=== PATIENT | male | born 1980 | race Caucasian/White ===

== ENCOUNTER 2016-07-19 09:11 | Day surgery (SDC) | payer BC ==
[~2016-07-19] VITALS: Ht 180.3 cm; Wt 114.3 kg
[~2016-07-19 09:11] MED LIST: CEFAZOLIN 2GM PREMIX 50 ML IV PRN; CETI10TA22 PO; FENTANYL PF 100 MCG/2 ML VIAL. IV PRN; FENTANYL PF 100 MCG/2 ML VIAL. ONE; HYDROMORPHONE 2 MG/ML VIAL. IV PRN; IV RINGERS,LACTATED 1000ML 1,000 ML IV SCH; LIDOCAINE 1% 1 ML SYRINGE. ID PRN; LIDOCAINE 2% 100 MG/5 ML DISP.SYRIN. ONE; MORPHINE SULFATE 2 MG/ML DISP.SYRIN. IV PRN; ONDANSETRON PF 4 MG/2 ML VIAL. IV PRN; PROCHLORPERAZINE 10 MG/2 ML VIAL. IV PRN; PROPOFOL 20 ML IV ONE; ROCURONIUM 50 MG/5 ML VIAL. ONE; SUCCINYLCHOLINE 200 MG/10 ML VIAL. ONE
[2016-07-19] MEDS ORDERED: IV RINGERS,LACTATED 1000ML 1,000 ML IV SCH (09:30)
[2016-07-19] MEDS ORDERED: BUPIVACAINE 0.5% 50 ML VIAL. ONE (09:33)
[2016-07-19 09:59] LABS: BASO # 0.1 x10^3/uL (0.0-0.2); BASO % 1 % (0-3); EOS % 2 % (0-3); HEMATOCRIT 44.3 % (39.0-53.0); HEMOGLOBIN 15.4 g/dL (13.0-17.5); LYMPH # 1.8 x10^3/uL (1.0-4.8); LYMPH % 29 % (24-48); MEAN CORPUSCULAR HEMOGLOBIN 30 pg (25-35); MEAN CORPUSCULAR HGB CONC 35 g/dL (31-37); MEAN CORPUSCULAR VOLUME 86 fL (79-100); MONO % 7 % (0-9); NEUT % 61 % (31-73); PLATELET COUNT 167 x10^3/uL (140-400); RED BLOOD COUNT 5.13 x10^6/uL (4.30-5.70); RED CELL DISTRIBUTION WIDTH 12.7 % (11.5-14.5); WHITE BLOOD COUNT 6.4 x10^3/uL (4.0-11.0)
[2016-07-19 10:06] LABS: ALBUMIN 3.9 g/dL (3.4-5.0); CALCIUM 9.2 mg/dL (8.5-10.1); CREATININE 1.1 mg/dL (0.7-1.3); GFR 74.9; POTASSIUM 3.7 mmol/L (3.5-5.1)
[2016-07-19] MEDS ORDERED: DEXAMETHASONE SOD PHOS 20 MG/5 ML VIAL. ONE (10:19)
[2016-07-19] MEDS ORDERED: DESFLURANE 31 TO 60 MINUTES IH ONE (10:19)
[2016-07-19] MEDS ORDERED: ONDANSETRON PF 4 MG/2 ML VIAL. ONE (10:29)
[2016-07-19] MEDS ORDERED: NEOSTIGMINE METHYLSULFATE 5 MG/5 ML SYRINGE. ONE (10:29)
[2016-07-19] MEDS ORDERED: GLYCOPYRROLATE 1 MG/5 ML VIAL. ONE (10:29)
[2016-07-19 12:45] VITALS: BP 132/76
[2016-07-19] MEDS ORDERED: DOCU100C PO (12:55)
[2016-07-19] MEDS ORDERED: OXYC-323 PO (12:55)
[2016-07-19] MEDS ORDERED: OXYCODONE/APAP 5/325 TABLET. ONE (12:57)
[2016-07-19] MEDS ORDERED: OXYCODONE/APAP 5/325 TABLET. PO ONE (13:00)
--- NOTE | 2016-07-19 13:00 | DISCH ---
DISCHARGE INSTRUCTIONS Condition on Discharge Condition on Discharge: Stable Activity After Discharge Activity Instructions for Disc: Activity as tolerated, Avoid exertion Driving Instructions after Dis: Do not drive (3-4 days) Diet after Discharge Diet after Discharge: Regular Wound Incision Care Wound/Incision Care: Ice to area for comfort Other wound/incision instructi: niya showankita Follow-Up Follow Up With: Hai next week JONNIE MICHAUD MD Jul 19, 2016 12:59
--- NOTE | 2016-07-19 13:03 | PDOC ---
BRIEF OPERATIVE NOTE Date: Jul 19, 2016 Pre-Op Diagnosis incarcerated umbilical hernia Post-Op Diagnosis same Procedure Performed primary repair Surgeon Hai Anesthesia Type: General Blood Loss 10cc IV Fluid 1200cc Specimens Obtained sack and incarcerated contents Findings incarcerated pre-peritoneal fat Complications none JONNIE MICHAUD MD Jul 19, 2016 13:03
--- NOTE | 2016-07-19 14:04 | OP ---
DATE OF SURGERY: 07/19/2016 PREOPERATIVE DIAGNOSIS: Incarcerated umbilical hernia. POSTOPERATIVE DIAGNOSIS: Incarcerated umbilical hernia. PROCEDURE: Primary repair. SURGEON: Moises Michaud MD ANESTHESIA: General. BLOOD LOSS: 10 mL. INTRAVENOUS FLUIDS: 1200. INDICATIONS: The patient is a 36-year-old who had bariatric surgery and has lost over 100 pounds. He has pain and fullness in the base of his umbilicus and he is brought for repair. OPERATIVE FINDINGS: A small defect (a centimeter or less) was the exit for a golf ball sized mass of preoperative fat. DESCRIPTION OF PROCEDURE: The patient brought to the operating suite, given general endotracheal anesthetic and the abdomen prepped and draped in the usual sterile fashion. Plain Marcaine 0.5% was infiltrated in an infraumbilical fashion. Incision made and dissection carried down to the anterior sheath. The hernia was encircled with careful blunt dissection and a Marilin drain placed around it. The umbilical skin was freed from the underlying hernia and the hernia sac was excised. Incarcerated contents were removed by serially clamp, dividing and ligating with 2-0 Vicryl ties. The residual defect was small and was closed primary with 0 PDS sutures, [id number] inverted x 2. A second layer of 0 Vicryl was placed to reinforce the closure. Good hemostasis was present and a correct sponge count was obtained. The umbilical skin was tacked underlying repair with 3-0 Vicryl. Subcutaneous tissue approximated with 3-0 Vicryl, skin closed with a subcuticular 4-0 Monocryl. Steri-Strips and sterile dressing applied. Abdominal binder placed. The patient was awakened from his anesthetic and taken to the recovery room in satisfactory condition. MOISES MICHAUD MD DR: SAL/solitario JOB#: [id number] / [id number]
--- NOTE | 2016-07-20 11:12 | PATHOLOGY ---
PATHOLOGY REPORT * * * * * * * * FINAL DIAGNOSIS: Segments of fibromembranous and fibroadipose tissue, umbilical hernia repair and contents: - Hernia sac with focal fat necrosis, recent hemorrhage, and chronic inflammation of hernia sac contents. (JPM:all; d/t: 07/20/2016) REPORT ELECTRONICALLY SIGNED BY: Joel Butts M.D. DATE/TIME: 07/20/2016 11:10 * * * * * * * * GROSS PATHOLOGY: Received in formalin labeled "Lois Lantigua - umbilical hernia sac and incarcerated contents," are several segments of blood tinged, red-pink to yellow-colon, membranous, and lobulated fibroadipose tissue measuring 9.3 x 5.5 x 2.5 cm in aggregate. Sectioning reveals focal areas of possible yellow-colon fat necrosis. No nodules or lesions are identified. Soft Mud Molder tissue is submitted in cassette A1. (TTL; 07/19/2016) INITIAL CPT CODE(S): A; 29857 Professional services performed [place] [place] [address] Technical services performed by [facility] at [address] [place] [address] [address], [place] [address]. SPECIMEN(S) RECEIVED: A.Umbilical hernia sac and incarcerated contents CLINICAL HISTORY: Incarcerated umbilical hernia PATIENT: LOIS LANTIGUA /AGE: 8 1980 (Age: 36) PATIENT #: [id number] ALT CASE #: SPECIMEN COLLECTION DATE: 07/19/2016 SPECIMEN RECEIVED DATE: 07/19/2016 [facility] - [address] [place] [address] - PHONE: [phone] * * * END OF REPORT * * *
== END 2016-07-19 13:14 | disposition home or self-care (01) ==
LOC: SURG 09:11
PROVIDERS: ATTEND Surgery
DX: K42.0 Umbilical hernia with obstruction, without gangrene (principal)
CPT/HCPCS: 36415; 49587; 80048; 82040; 85027; J0330; J0690; J1100; J2405; J2704; J2710; J3010; J3490; C1769; J7120

== ENCOUNTER 2016-10-31 07:52 | Inpatient (IN) | payer BC ==
[~2016-10-31] VITALS: Ht 180.3 cm; Wt 113.2 kg
[2016-10-31] VITALS (9 sets, daily range): BP systolic 110–136; BP diastolic 51–90
[~2016-10-31 07:52] MED LIST changes: -CEFAZOLIN 2GM PREMIX 50 ML IV PRN; +DOCU100C PO; -FENTANYL PF 100 MCG/2 ML VIAL. IV PRN; -FENTANYL PF 100 MCG/2 ML VIAL. ONE; -HYDROMORPHONE 2 MG/ML VIAL. IV PRN; -IV RINGERS,LACTATED 1000ML 1,000 ML IV SCH; -LIDOCAINE 1% 1 ML SYRINGE. ID PRN; -LIDOCAINE 2% 100 MG/5 ML DISP.SYRIN. ONE; -MORPHINE SULFATE 2 MG/ML DISP.SYRIN. IV PRN; -ONDANSETRON PF 4 MG/2 ML VIAL. IV PRN; +OXYC-323 PO; -PROCHLORPERAZINE 10 MG/2 ML VIAL. IV PRN; -PROPOFOL 20 ML IV ONE; -ROCURONIUM 50 MG/5 ML VIAL. ONE; -SUCCINYLCHOLINE 200 MG/10 ML VIAL. ONE
[2016-10-31] MEDS ORDERED: FAMOTIDINE 20 MG/2 ML VIAL IVP ONE (08:30)
[2016-10-31] MEDS ORDERED: FENTANYL PF 100 MCG/2 ML VIAL. IV ONE ×2 (08:30→10:00)
[2016-10-31] MEDS ORDERED: ONDANSETRON PF 4 MG/2 ML VIAL. IV ONE (08:30)
[2016-10-31] MEDS ORDERED: IV NORMAL SALINE 1000ML BAG 1,000 ML IV ONE ×2 (08:30→14:00)
--- NOTE | 2016-10-31 08:33 | PHYS DOC ---
Past Medical History Past Medical History: No Pertinent History Past Surgical History: Other Additional Past Surgical Histo: hiatal hernia sugery, gastric lab band, hydrocele Alcohol Use: None Drug Use: None Adult General Chief Complaint Chief Complaint: ABDOMINAL PAIN HPI HPI Patient is a 36 year old male with history of hiatal hernia repair, gastric sleeve bypass, and hydrocele, who presents today with moderate bilateral upper abdominal pain that began at midnight. Patient denies pain waking him up. Patient denies any nausea, vomiting. Denies any urgency frequency or dysuria. He states he believes he has a gallbladder attack. He states he's had multiple gallbladder attacks before but they have typically subsided within a short time. Review of Systems Review of Systems Constitutional: Denies fever or chills [] Eyes: Denies change in visual acuity, redness, or eye pain [] HENT: Denies nasal congestion or sore throat [] Respiratory: Denies cough or shortness of breath [] Cardiovascular: No additional information not addressed in HPI [] GI: Bilateral upper abdominal pain, : Denies dysuria or hematuria [] Musculoskeletal: Denies back pain or joint pain [] Integument: Denies rash or skin lesions [] Neurologic: Denies headache, focal weakness or sensory changes [] Endocrine: Denies polyuria or polydipsia [] Current Medications Current Medications Current Medications Medications (Trade) Dose Ordered Sig/Lizbeth Start Time Stop Time Status Last Admin Dose Admin Famotidine (Pepcid) 20 mg 1X ONCE 10/31/16 08:30 10/31/16 08:31 DC 10/31/16 08:52 20 MG Fentanyl Citrate (Fentanyl 2ml Vial) 75 mcg 1X ONCE 10/31/16 10:00 10/31/16 10:01 Cancel Fentanyl Citrate 50 mcg 50 mcg PRN Q2HR PRN 10/31/16 14:00 11/01/16 13:59 Ketorolac Tromethamine (Toradol) 30 mg STK-MED ONCE 10/31/16 10:31 10/31/16 10:32 DC Ondansetron HCl (Zofran) 4 mg PRN Q8HRS PRN 10/31/16 14:00 11/01/16 13:59 Sodium Chloride (Iv Sodium Chloride 0.9% 1000ml Bag) 1,000 ml @ 75 mls/hr 1X ONCE 10/31/16 14:00 11/01/16 03:19 Allergies Allergies Allergies Coded Allergies Type Severity Reaction Last Updated Verified No Known Drug Allergies 07/13/16 No Physical Exam Physical Exam Constitutional: Well developed, well nourished, no acute distress, non-toxic appearance. [] HENT: Normocephalic, atraumatic, bilateral external ears normal, oropharynx moist, no oral exudates, nose normal. [] Eyes: PERRLA, EOMI, conjunctiva normal, no discharge. [] Neck: Normal range of motion, no tenderness, supple, no stridor. [] Cardiovascular:Heart rate regular rhythm, no murmur [] Lungs & Thorax: Bilateral breath sounds clear to auscultation [] Abdomen: Rounded abdomen. Healed surgical scars noted on the umbilicus. Bowel sounds normal, soft, diffuse bilateral upper abdominal tenderness, negative Cabrera sign, no right lower quadrant pain or tenderness, negative psoas, sign negative, negative obturator sign, no masses, no pulsatile masses. [] Skin: Warm, dry, no erythema, no rash. [] Back: No tenderness, no CVA tenderness. [] Extremities: No tenderness, no cyanosis, no clubbing, ROM intact, no edema. [] Neurologic: Alert and oriented X 3, normal motor function, normal sensory function, no focal deficits noted. [] Psychologic: Affect normal, judgement normal, mood normal. [] Current Patient Data Vital Signs Vital Signs Date Time Temp Pulse Resp B/P Pulse Ox O2 Delivery O2 Flow Rate FiO2 10/31/16 13:33 40 18 114/68 96 Room Air 10/31/16 08:18 97.7 97.7 Lab Values Laboratory Tests Test 10/31/16 08:48 White Blood Count 8.8x10^3/uL (4.0-11.0) Red Blood Count 4.98x10^6/uL (4.30-5.70) Hemoglobin 14.7g/dL (13.0-17.5) Hematocrit 44.5% (39.0-53.0) Mean Corpuscular Volume 89fL (79-100) Mean Corpuscular Hemoglobin 30pg (25-35) Mean Corpuscular Hemoglobin Concent 33g/dL (31-37) Red Cell Distribution Width 13.1% (11.5-14.5) Platelet Count 182x10^3/uL (140-400) Neutrophils (%) (Auto) 79% (31-73) H Lymphocytes (%) (Auto) 15% (24-48) L Monocytes (%) (Auto) 4% (0-9) Eosinophils (%) (Auto) 1% (0-3) Basophils (%) (Auto) 1% (0-3) Neutrophils # (Auto) 6.9x10^3uL (1.8-7.7) Lymphocytes # (Auto) 1.3x10^3/uL (1.0-4.8) Monocytes # (Auto) 0.4x10^3/uL (0.0-1.1) Eosinophils # (Auto) 0.1x10^3/uL (0.0-0.7) Basophils # (Auto) 0.1x10^3/uL (0.0-0.2) Urine Collection Type Unknown Urine Color Yellow Urine Clarity Clear Urine pH 5.5 Urine Specific [place] 1.025 Urine Protein Negativemg/dL (NEG-TRACE) Urine Glucose (UA) Negativemg/dL (NEG) Urine Ketones (Stick) Negativemg/dL (NEG) Urine Blood Negative (NEG) Urine Nitrite Negative (NEG) Urine Bilirubin Negative (NEG) Urine Urobilinogen Dipstick 0.2mg/dL (0.2 mg/dL) Urine Leukocyte Esterase Negative (NEG) Urine RBC 0/HPF (0-2) Urine WBC 0/HPF (0-4) Urine Bacteria 0/HPF (0-FEW) Sodium Level 141mmol/L (136-145) Potassium Level 4.4mmol/L (3.5-5.1) Chloride Level 103mmol/L (98-107) Carbon Dioxide Level 28mmol/L (21-32) Anion Gap 10 (6-14) Blood Urea Nitrogen 15mg/dL (8-26) Creatinine 1.1mg/dL (0.7-1.3) Estimated GFR (Cockcroft-Gault) 74.9 BUN/Creatinine Ratio 14 (6-20) Glucose Level 126mg/dL (70-99) H Calcium Level 9.9mg/dL (8.5-10.1) Total Bilirubin 0.4mg/dL (0.2-1.0) Aspartate Amino Transferase (AST) 19U/L (15-37) Alanine Aminotransferase (ALT) 30U/L (16-63) Alkaline Phosphatase 51U/L (46-116) Total Protein 7.8g/dL (6.4-8.2) Albumin 4.5g/dL (3.4-5.0) Albumin/Globulin Ratio 1.4 (1.0-1.7) Lipase 113U/L (73-393) Urine Opiates Screen Neg (NEG) Urine Methadone Screen Neg (NEG) Urine Barbiturates Neg (NEG) Urine Phencyclidine Screen Neg (NEG) Urine Amphetamine/Methamphetamine Neg (NEG) Urine Benzodiazepines Screen Neg (NEG) Urine Cocaine Screen Neg (NEG) Urine Cannabinoids Screen Neg (NEG) Ethyl Alcohol Level < 10mg/dL (0-10) Urine Ethyl Alcohol Neg (NEG) Laboratory Tests 10/31/16 08:48 Laboratory Tests 10/31/16 08:48 EKG EKG 10:[address] MACIAS sinus bradycardia, heart rate 37, [] Radiology/Procedures Radiology/Procedures [] Course & Med Decision Making Course & Med Decision Making Pertinent Labs and Imaging studies reviewed. (See chart for details) Patient is in the ED with bilateral upper abdominal pain that began at midnight. He has history of similar pain and he believes he has gallbladder problems. Labs are negative for any acute findings. Abdominal ultrasound was noted for cholelithiasis, no cholecystitis. Patient was given fentanyl and Zofran and IV fluids. He was still writhing in pain. He is requesting his gallbladder to be removed a right now. His heart rate has been in the high 30s to 60s with no cardiac symptoms. Patient states he has history of chronic bradycardia. 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 He states he had to loose tremendous amount of weight by working out. He states his heart rate has always run in the 30s to 60s. He states he has a PCP who follows up with this. He states he does not take any beta blockers. Consulted with Dr. Valles and patient was admitted. Dragon Disclaimer Dragon Disclaimer This electronic medical record was generated, in whole or in part, using a voice recognition dictation system. Departure Departure Impression: Primary Impression: Cholelithiasis Additional Impressions: Chronic sinus bradycardia Intractable abdominal pain Referrals: ALFRED MULLEN (PCP) Problem Qualifiers Primary Impression: Cholelithiasis Cholelithiasis location: gallbladder Cholecystitis presence: without cholecystitis Biliary obstruction: without biliary obstruction Qualified Code : K80.20 - Calculus of gallbladder without cholecystitis without obstruction RAD VELAZCO LUMBER STACKER Oct 31, 2016 08:33
[2016-10-31 09:04] LABS: BASO # 0.1 x10^3/uL (0.0-0.2); BASO % 1 % (0-3); EOS % 1 % (0-3); HEMATOCRIT 44.5 % (39.0-53.0); HEMOGLOBIN 14.7 g/dL (13.0-17.5); LYMPH # 1.3 x10^3/uL (1.0-4.8); LYMPH % 15 % (24-48); MEAN CORPUSCULAR HEMOGLOBIN 30 pg (25-35); MEAN CORPUSCULAR HGB CONC 33 g/dL (31-37); MEAN CORPUSCULAR VOLUME 89 fL (79-100); MONO % 4 % (0-9); NEUT % 79 % (31-73); PLATELET COUNT 182 x10^3/uL (140-400); RED BLOOD COUNT 4.98 x10^6/uL (4.30-5.70); RED CELL DISTRIBUTION WIDTH 13.1 % (11.5-14.5); WHITE BLOOD COUNT 8.8 x10^3/uL (4.0-11.0)
[2016-10-31 09:06] LABS: BILIRUBIN,URINE NEGATIVE (NEG); GLUCOSE,URINE NEGATIVE (NEG); NITRITE,URINE NEGATIVE (NEG); PH,URINE 5.5; PROTEIN,URINE NEGATIVE (NEG-TRACE); UROBILINOGEN,URINE 0.2 mg/dL (0.2 mg/dL)
[2016-10-31 09:11] LABS: BARBITURATES NEG (NEG); BENZODIAZEPINES NEG (NEG); CANNABINOIDS NEG (NEG); COCAINE NEG (NEG); METHADONE NEG (NEG); OPIATES NEG (NEG); PHENCYCLIDINE NEG (NEG)
[2016-10-31 09:12] LABS: ETHANOL, URINE NEG (NEG)
[2016-10-31 09:15] LABS: BACTERIA,URINE 0 /HPF (0-FEW); RBC,URINE 0 /HPF (0-2); WBC,URINE 0 /HPF (0-4)
[2016-10-31 09:20] LABS: CALCIUM 9.9 mg/dL (8.5-10.1); CREATININE 1.1 mg/dL (0.7-1.3); GFR 74.9; POTASSIUM 4.4 mmol/L (3.5-5.1)
[2016-10-31 09:26] LABS: ALBUMIN 4.5 g/dL (3.4-5.0); ALBUMIN/GLOBULIN RATIO 1.4 (1.0-1.7); TOTAL BILIRUBIN 0.4 mg/dL (0.2-1.0); TOTAL PROTEIN 7.8 g/dL (6.4-8.2)
--- NOTE | 2016-10-31 09:41 | RAD ---
Indication:Abdominal pain Grayscale images of the abdomen were obtained. Comparison none Liver:A focal mass lesion is not seen and the visualized liver. There is slightly increased attenuation of the ultrasound beam by the liver compatible with mild fatty infiltration Gallbladder:The gallbladder is mildly dilated. A stone is noted in the neck of the gallbladder. Wall thickening or pericholecystic fluid is not seen. The common bile duct diameter of approximately 6 mm is at the upper limits of normal Spleen:Normal Pancreas:Poorly visualized and largely obscured by gas Kidneys:Normal Abdominal aorta and IVC:Similar to the pancreas largely obscured Ancillary findings:None Impression:Cholelithiasis. Mild fatty infiltration of the liver Midline structures largely obscured
[2016-10-31] MEDS ORDERED: KETOROLAC TROMETHAMINE 30 MG/ML INJ. IV ONE (10:30)
[2016-10-31] MEDS ORDERED: KETOROLAC TROMETHAMINE 30 MG/ML INJ. ONE (10:31)
--- NOTE | 2016-10-31 10:52 | ACF ---
Admission Forms Criteria GALLBLADDER OR BILE DUCT INFLAMMATION OR STONE Clinical Indications for Admission to Inpatient Care ( Place 'X' for any and all applicable criteria): Admission is indicated for patients with ANY ONE of the following(1)(2)(3)(4)(5) : [ ]I. Acute cholecystitis as indicated by ALL of the following: [ ]a) Right upper quadrant pain, mass, or tenderness [ ]b) Systemic signs of inflammation indicated by ANY ONE of the following: [ ]i) Fever [ ]ii) C-reactive protein level greater than 10 mg/L (95 nmol/L) [ ]iii) White blood cell count greater than 10,000/mm3 (10 x109/L) or less than 4000/mm3 (4 x109/L) [X]II. Inpatient admission required rather than observation care (Also use Gallbladder or Bile Duct Inflammation or Stone: Observation Care as appropriate) because of ANY ONE of the following: [ ]a) Common bile duct obstruction diagnosed [ ]b) Vomiting that is severe or persistent [ ]c) Severe pain requiring acute inpatient management [ ]d) Signs of intestinal obstruction or peritonitis [A] [ ]e) Severe electrolyte abnormalities requiring inpatient care [ ]f) Absent bowel sounds with complete ileus(8) [X]g) Hemodynamic instability [ ]h) High fever or infection requiring inpatient admission as indicated by ANY ONE of the following (9): [ ]1) Appropriate outpatient or observation care antimicrobial Treatment. unavailable, not effective, or not feasible [ ]2) Temperature greater than 104.9 degrees F (40.5 degrees C) (oral) [ ]3) Temperature greater than 103.1 degrees F (39.5 degrees C) (oral) or less than 96.8 degrees F (36 degrees C) (rectal) that does not respond to all emergency treatment measures [ ]4) Documented bacteremia [ ]i) IV fluid to replace significant ongoing losses (greater than 3 L/m2 per day) [ ]j) Percutaneous or open drainage (eg, abscess, biliary tract) procedures [ ]k) Immediate inpatient surgery [ ]l) Other condition, treatment or monitoring requiring inpatient admission [ ]III. Acute cholangitis as indicated by ALL of the following(9)(10): [ ]a) Systemic signs of inflammation indicated by ANY ONE of the following: [ ]i) Fever [ ]ii) C-reactive protein level greater than 10 mg/L (95 nmol /L) [ ]iii) White blood cell count greater than 10,000/mm3 (10 x109/L) or less than 4000/mm3 (4 x109/L) [ ]b) Evidence of common bile duct disease indicated by ANY ONE of the following: [ ]i) Total serum bilirubin level greater than or equal to 2 mg/dL (34 micromoles/L) [ ]ii) Liver function test (alkaline phosphatase (ALP), r- glutamyltransferase (GGT), aspartate aminotransferase (AST), or alanine aminotransferase (ALT)) greater than 1.5 times the upper limit of normal[B] [ ]iii) Hepatobiliary imaging showing biliary dilatation or evidence of etiology (eg, stricture, stone, previously placed stent) Extended stay beyond goal length of stay may be needed for (1)(2)): [ ]a) Bacteremia or Hemodynamic instability [ ]b) Cholecystectomy [ ]c) Other surgical procedure(24) [ ]d) Percutaneous or endoscopic ultrasound-guided cholecystostomy The original [facility] content created by [facility] has been revised. The portions of the content which have been revised are identified through the use of italic text or in bold, and [facility] has neither reviewed nor approved the modified material. All other unmodified content is copyright [facility]. Please see references footnoted in the original [facility] edition 2016 Admission Criteria Met?: Yes TRAY NINA Oct 31, 2016 10:52
--- NOTE | 2016-10-31 11:18 | EKG ---
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
--- NOTE | 2016-10-31 12:47 | PDOC2 ---
DEEJAY WOODS Kelly SHEET TAKER 10/31/16 1247: CONSULT Date of Consult Date of Consult DATE: 10/31/16 TIME: 12:40 Reason for Consult Reason for Consult: cholelithiasis Referring Physician Referring Physician: ER Identification/Chief Complaint Chief Complaint abdominal pain Source Source: Chart review, Patient History of Present Illness Reason for Visit: Acute abdominal pain, started last night. across abdomen, no radiation to back. No emesis. Has had similar episodes in past. Aggravated by pepperoni ( had for lunch yesterday). Currently feeling better Past Medical History Past Medical History no significant medical problems Past Surgical History Past Surgical History: Hernia Repair (umbilical in Jul, lap band ) Family History Family History: Other (noncontributory to current illness ) Social History No ALCOHOL: occassional Drugs: None Lives: with Family Current Medications Current Medications Current Medications Sodium Chloride (Iv Sodium Chloride 0.9% 1000ml Bag) 1,000 ml @ 1,000 mls/hr 1X ONCE IV Last administered on 10/31/16 08:53; Start 10/31/16 at 08:30; Stop 10/31/16 at 09:29; Status DC Famotidine (Pepcid) 20 mg 1X ONCE IVP Last administered on 10/31/16 08:52; Start 10/31/16 at 08:30; Stop 10/31/16 at 08:31; Status DC Ondansetron HCl (Zofran) 4 mg 1X ONCE IV Last administered on 10/31/16 08:52 ; Start 10/31/16 at 08:30; Stop 10/31/16 at 08:31; Status DC Fentanyl Citrate (Fentanyl 2ml Vial) 50 mcg 1X ONCE IV Last administered on 08:52; Start 10/31/16 at 08:30; Stop 10/31/16 at 08:31; Status DC Fentanyl Citrate (Fentanyl 2ml Vial) 75 mcg 1X ONCE IV ; Start 10/31/16 at 10: 00; Stop 10/31/16 at 10:01; Status Cancel Ketorolac Tromethamine (Toradol) 30 mg 1X ONCE IV Last administered on 10:32; Start 10/31/16 at 10:30; Stop 10/31/16 at 10:31; Status DC Ketorolac Tromethamine (Toradol) 30 mg STK-MED ONCE .ROUTE ; Start 10/31/16 at 10:31; Stop 10/31/16 at 10:32; Status DC Active Scripts Active Reported Stool Softener (Docusate Sodium) 100 Mg Capsule 100 Mg PO Percocet 5-325 Mg Tablet (Oxycodone/Acetaminophen) 1 Each Tablet 1 Tab PO QID Zyrtec (Cetirizine Hcl) 10 Mg Tablet 10 Mg PO Allergies Allergies: Coded Allergies: No Known Drug Allergies (Unverified , 07/13/16) ROS General: No: Chills, Other (fevers) PSYCHOLOGICAL ROS: No: Anxiety, Depression Eyes: No Blurry vision, No Double vision HEENT: No: Heacaches, Sore Throat Hematological and Lymphatic: No: Bleeding Problems, Blood Clots Respiratory: No: Cough, Shortness of breath Cardiovascular: No Chest Pain, No Palpitations Gastrointestinal: Yes Other (see hpi) Genitourinary: No Dysuria, No Hematuria Musculoskeletal: No Joint Pain, No Muscle Pain Neurological: No Confusion, No Numbness/Tingling Skin: No Pruritus, No Rash Physical Exam General: Alert, Oriented X3, Cooperative, No acute distress HEENT: PERRLA, Mucous membr. moist/pink Lungs: Clear to auscultation, Normal air movement Heart: Regular rate, Normal S1, Normal S2, No murmurs Abdomen: Soft, Other (ND, mildly tender to RUQ) Extremities: No clubbing, No cyanosis Skin: No rashes, No breakdown Neuro: Normal gait, Normal speech Psych/Mental Status: Mental status NL, Mood NL MUSCULOSKELETAL: No deformity, No swelling Vitals VITALS Vital Signs Date Time Temp Pulse Resp B/P Pulse Ox O2 Delivery O2 Flow Rate FiO2 10/31/16 11:03 42 20 140/69 97 Room Air 10/31/16 08:18 97.7 97.7 Labs Labs Laboratory Tests Test 10/31/16 08:48 White Blood Count 8.8x10^3/uL (4.0-11.0) Red Blood Count 4.98x10^6/uL (4.30-5.70) Hemoglobin 14.7g/dL (13.0-17.5) Hematocrit 44.5% (39.0-53.0) Mean Corpuscular Volume 89fL (79-100) Mean Corpuscular Hemoglobin 30pg (25-35) Mean Corpuscular Hemoglobin Concent 33g/dL (31-37) Red Cell Distribution Width 13.1% (11.5-14.5) Platelet Count 182x10^3/uL (140-400) Neutrophils (%) (Auto) 79% (31-73) Lymphocytes (%) (Auto) 15% (24-48) Monocytes (%) (Auto) 4% (0-9) Eosinophils (%) (Auto) 1% (0-3) Basophils (%) (Auto) 1% (0-3) Neutrophils # (Auto) 6.9x10^3uL (1.8-7.7) Lymphocytes # (Auto) 1.3x10^3/uL (1.0-4.8) Monocytes # (Auto) 0.4x10^3/uL (0.0-1.1) Eosinophils # (Auto) 0.1x10^3/uL (0.0-0.7) Basophils # (Auto) 0.1x10^3/uL (0.0-0.2) Urine Collection Type Unknown Urine Color Yellow Urine Clarity Clear Urine pH 5.5 Urine Specific [place] 1.025 Urine Protein Negativemg/dL (NEG-TRACE) Urine Glucose (UA) Negativemg/dL (NEG) Urine Ketones (Stick) Negativemg/dL (NEG) Urine Blood Negative (NEG) Urine Nitrite Negative (NEG) Urine Bilirubin Negative (NEG) Urine Urobilinogen Dipstick 0.2mg/dL (0.2 mg/dL) Urine Leukocyte Esterase Negative (NEG) Urine RBC 0/HPF (0-2) Urine WBC 0/HPF (0-4) Urine Bacteria 0/HPF (0-FEW) Sodium Level 141mmol/L (136-145) Potassium Level 4.4mmol/L (3.5-5.1) Chloride Level 103mmol/L (98-107) Carbon Dioxide Level 28mmol/L (21-32) Anion Gap 10 (6-14) Blood Urea Nitrogen 15mg/dL (8-26) Creatinine 1.1mg/dL (0.7-1.3) Estimated GFR (Cockcroft-Gault) 74.9 BUN/Creatinine Ratio 14 (6-20) Glucose Level 126mg/dL (70-99) Calcium Level 9.9mg/dL (8.5-10.1) Total Bilirubin 0.4mg/dL (0.2-1.0) Aspartate Amino Transf (AST/SGOT) 19U/L (15-37) Alanine Aminotransferase (ALT/SGPT) 30U/L (16-63) Alkaline Phosphatase 51U/L (46-116) Total Protein 7.8g/dL (6.4-8.2) Albumin 4.5g/dL (3.4-5.0) Albumin/Globulin Ratio 1.4 (1.0-1.7) Lipase 113U/L (73-393) Urine Opiates Screen Neg (NEG) Urine Methadone Screen Neg (NEG) Urine Barbiturates Neg (NEG) Urine Phencyclidine Screen Neg (NEG) Urine Amphetamine/Methamphetamine Neg (NEG) Urine Benzodiazepines Screen Neg (NEG) Urine Cocaine Screen Neg (NEG) Urine Cannabinoids Screen Neg (NEG) Ethyl Alcohol Level < 10mg/dL (0-10) Urine Ethyl Alcohol Neg (NEG) Assessment/Plan Assessment/Plan symptomatic cholelithiasis, stone in neck of gallbladder will review with Dr Michaud on timing of surgery JONNIE MICHAUD MD 10/31/16 1512: CONSULT Allergies Allergies: Coded Allergies: No Known Drug Allergies (Unverified , 07/13/16) Assessment/Plan Assessment/Plan pt seen, interviewed and examined will proceed with cholecystectomy explained risks including but not limited to bleeding, infection, injury to bowel, liver or bile ducts with resultant bile leak or bile blockage. also possible need for an "open" procedure or diarrhea post op. he will proceed Thanks for consult DEEJAY WOODS APRN Oct 31, 2016 12:47 JONNIE MICHAUD MD Oct 31, 2016 15:12
[2016-10-31] MEDS ORDERED: ONDANSETRON PF 4 MG/2 ML VIAL. IV PRN ×3 (14:00→19:15)
[2016-10-31] MEDS ORDERED: CEFAZOLIN 1GM IVPB FOR OMNI 50 ML IV ONE (14:30)
[2016-10-31] MEDS: FENTANYL PF 100 MCG/2 ML VIAL. IV PRN ×2 (15:51→23:25)
[2016-10-31] MEDS ORDERED: CEFAZOLIN 1 GM IV SCH (16:00)
[2016-10-31] MEDS ORDERED: IV RINGERS,LACTATED 1000ML 1,000 ML IV SCH (16:14)
[2016-10-31] MEDS ORDERED: HYDROMORPHONE 2 MG/ML VIAL. IV PRN ×2 (16:15→19:15)
[2016-10-31] MEDS ORDERED: PROCHLORPERAZINE 10 MG/2 ML VIAL. IV PRN (16:15)
[2016-10-31] MEDS ORDERED: FENTANYL PF 100 MCG/2 ML VIAL. IV PRN ×2 (16:15)
[2016-10-31] MEDS ORDERED: MORPHINE SULFATE 2 MG/ML DISP.SYRIN. IV PRN (16:15)
[2016-10-31] MEDS ORDERED: LIDOCAINE 1% 1 ML SYRINGE. ID PRN (16:15)
[2016-10-31] MEDS ORDERED: SUCCINYLCHOLINE 200 MG/10 ML VIAL. ONE (16:43)
[2016-10-31] MEDS ORDERED: FENTANYL PF 100 MCG/2 ML VIAL. ONE ×2 (16:43→18:42)
[2016-10-31] MEDS ORDERED: LIDOCAINE 2% 100 MG/5 ML SYRINGE. ONE (16:43)
[2016-10-31] MEDS ORDERED: PROPOFOL 20 ML IV ONE ×2 (16:43→18:41)
[2016-10-31] MEDS ORDERED: ROCURONIUM 50 MG/5 ML VIAL. ONE (16:44)
[2016-10-31] MEDS ORDERED: CEFAZOLIN 2GM PREMIX 50 ML IV ONE (17:07)
[2016-10-31] MEDS ORDERED: FAMOTIDINE 20 MG/2 ML VIAL ONE (17:13)
[2016-10-31] MEDS ORDERED: SURGICEL HEMOSTAT 4X8 EACH. ONE (17:21)
[2016-10-31] MEDS ORDERED: BUPIVAC MPF-EPI 0.5%-1:200000 30 ML VIAL. ONE (17:22)
[2016-10-31] MEDS ORDERED: IOHEXOL 300 MG/ML 50 ML VIAL. ONE (17:22)
[2016-10-31] MEDS ORDERED: ACETAMINOPHEN INTRAVENOUS 100 ML IV ONE (17:32)
[2016-10-31] MEDS: CEFAZOLIN SODIUM 1 GM in IV NORMAL SALINE 50ML 50 ML IV SCH ×2 (17:50→23:25)
[2016-10-31] MEDS ORDERED: DEXAMETHASONE SOD PHOS 20 MG/5 ML VIAL. ONE (18:11)
[2016-10-31] MEDS ORDERED: NEOSTIGMINE METHYLSULFATE 5 MG/5 ML SYRINGE. ONE (18:11)
[2016-10-31] MEDS ORDERED: GLYCOPYRROLATE 1 MG/5 ML VIAL. ONE (18:11)
[2016-10-31] MEDS ORDERED: DESFLURANE 31 TO 60 MINUTES IH ONE (18:11)
[2016-10-31] MEDS ORDERED: ONDANSETRON PF 4 MG/2 ML VIAL. ONE (18:11)
[2016-10-31] MEDS ORDERED: DIPHENHYDRAMINE HCL 25 MG CAPSULE PO PRN (19:15)
[2016-10-31] MEDS ORDERED: DIPHENHYDRAMINE 50 MG/ML VIAL. IV PRN (19:15)
[2016-10-31] MEDS ORDERED: 0.9 % SODIUM CHLORIDE 10 ML DISP.SYRIN. IV PRN (19:15)
[2016-10-31] MEDS ORDERED: DEXTROSE 50% 25 GM / 50ML DISP.SYRIN. IV PRN (19:15)
[2016-10-31] MEDS ORDERED: OXYCODONE/APAP 5/325 TABLET. PO PRN ×2 (19:15)
--- NOTE | 2016-10-31 19:17 | PDOC ---
BRIEF OPERATIVE NOTE Date: Oct 31, 2016 Pre-Op Diagnosis symptomatic cholelithiasis Post-Op Diagnosis same with gangrenous cholecystitis Procedure Performed l/s cholecystectomy with cholangiograms Surgeon Hai Anesthesia Type: General Blood Loss 25cc IV Fluid 400cc Specimens Obtained GB Findings gangrenous gallbladder, normal grams JONNIE MICHAUD MD Oct 31, 2016 19:17
[2016-10-31] MEDS ORDERED: ENOXAPARIN 40 MG/0.4 ML SYRINGE. SQ SCH (20:00)
[2016-10-31] MEDS: POTASSIUM CL 20MEQ-0.45% NACL 1,000 ML IV SCH (21:54)
[2016-10-31] MEDS: DOCUSATE SODIUM 100 MG CAPSULE. PO SCH (21:55)
[2016-11-01 03:01] VITALS: BP 112/84
[2016-11-01] MEDS: FENTANYL PF 100 MCG/2 ML VIAL. IV PRN ×2 (03:21→08:56)
[2016-11-01] MEDS: CEFAZOLIN SODIUM 1 GM in IV NORMAL SALINE 50ML 50 ML IV SCH ×2 (05:34→08:52)
[2016-11-01 05:49] LABS: BASO % 1 % (0-3); EOS % 0 % (0-3); HEMATOCRIT 41.8 % (39.0-53.0); HEMOGLOBIN 14.1 g/dL (13.0-17.5); LYMPH % 11 % (24-48); MEAN CORPUSCULAR HEMOGLOBIN 30 pg (25-35); MEAN CORPUSCULAR HGB CONC 34 g/dL (31-37); MEAN CORPUSCULAR VOLUME 87 fL (79-100); MONO % 6 % (0-9); NEUT % 82 % (31-73); PLATELET COUNT 153 x10^3/uL (140-400); RED BLOOD COUNT 4.78 x10^6/uL (4.30-5.70); RED CELL DISTRIBUTION WIDTH 13.4 % (11.5-14.5); WHITE BLOOD COUNT 8.7 x10^3/uL (4.0-11.0)
[2016-11-01] MEDS ORDERED: CEFAZOLIN 2GM PREMIX 50 ML IV PRN (06:00)
[2016-11-01 06:25] LABS: ALBUMIN 3.5 g/dL (3.4-5.0); ALBUMIN/GLOBULIN RATIO 1.1 (1.0-1.7); CALCIUM 8.9 mg/dL (8.5-10.1); GFR 83.6; POTASSIUM 4.6 mmol/L (3.5-5.1); TOTAL BILIRUBIN 0.6 mg/dL (0.2-1.0); TOTAL PROTEIN 6.7 g/dL (6.4-8.2)
[2016-11-01 07:00] VITALS: BP 122/77
[2016-11-01] MEDS: DOCUSATE SODIUM 100 MG CAPSULE. PO SCH (08:55)
[2016-11-01] MEDS: POTASSIUM CL 20MEQ-0.45% NACL 1,000 ML IV SCH (08:55)
--- NOTE | 2016-11-01 10:03 | PDOC ---
SURGICAL PROGRESS NOTE Subjective tolerating diet feeling well no nausea urinating Vital Signs Vital Signs Date Time Temp Pulse Resp B/P Pulse Ox O2 Delivery O2 Flow Rate FiO2 11/01/16 09:53 Room Air 11/01/16 07:00 97.5 40 18 122/77 97 97.5 10/31/16 19:37 2 I&O Intake and Output 11/01/16 07:00 Intake Total 1350 ml Output Total 735 ml Balance 615 ml Intake Oral 800 ml IV Total 550 ml Output Urine Total 650 ml Drainage Total 60 ml Estimated Blood Loss 25 ml # Voids 2 General: Alert, Oriented X3, Cooperative, No acute distress Abdomen: Soft, Other (ND, drain serosang, lap dressings dry ) Labs Laboratory Tests Test 10/31/16 08:48 11/01/16 05:11 White Blood Count 8.8x10^3/uL (4.0-11.0) 8.7x10^3/uL (4.0-11.0) Red Blood Count 4.98x10^6/uL (4.30-5.70) 4.78x10^6/uL (4.30-5.70) Hemoglobin 14.7g/dL (13.0-17.5) 14.1g/dL (13.0-17.5) Hematocrit 44.5% (39.0-53.0) 41.8% (39.0-53.0) Mean Corpuscular Volume 89fL (79-100) 87fL (79-100) Mean Corpuscular Hemoglobin 30pg (25-35) 30pg (25-35) Mean Corpuscular Hemoglobin Concent 33g/dL (31-37) 34g/dL (31-37) Red Cell Distribution Width 13.1% (11.5-14.5) 13.4% (11.5-14.5) Platelet Count 182x10^3/uL (140-400) 153x10^3/uL (140-400) Neutrophils (%) (Auto) 79% (31-73) 82% (31-73) Lymphocytes (%) (Auto) 15% (24-48) 11% (24-48) Monocytes (%) (Auto) 4% (0-9) 6% (0-9) Eosinophils (%) (Auto) 1% (0-3) 0% (0-3) Basophils (%) (Auto) 1% (0-3) 1% (0-3) Neutrophils # (Auto) 6.9x10^3uL (1.8-7.7) 7.2x10^3uL (1.8-7.7) Lymphocytes # (Auto) 1.3x10^3/uL (1.0-4.8) 1.0x10^3/uL (1.0-4.8) Monocytes # (Auto) 0.4x10^3/uL (0.0-1.1) 0.5x10^3/uL (0.0-1.1) Eosinophils # (Auto) 0.1x10^3/uL (0.0-0.7) 0.0x10^3/uL (0.0-0.7) Basophils # (Auto) 0.1x10^3/uL (0.0-0.2) 0.0x10^3/uL (0.0-0.2) Urine Collection Type Unknown Urine Color Yellow Urine Clarity Clear Urine pH 5.5 Urine Specific [place] 1.025 Urine Protein Negativemg/dL (NEG-TRACE) Urine Glucose (UA) Negativemg/dL (NEG) Urine Ketones (Stick) Negativemg/dL (NEG) Urine Blood Negative (NEG) Urine Nitrite Negative (NEG) Urine Bilirubin Negative (NEG) Urine Urobilinogen Dipstick 0.2mg/dL (0.2 mg/dL) Urine Leukocyte Esterase Negative (NEG) Urine RBC 0/HPF (0-2) Urine WBC 0/HPF (0-4) Urine Bacteria 0/HPF (0-FEW) Sodium Level 141mmol/L (136-145) 141mmol/L (136-145) Potassium Level 4.4mmol/L (3.5-5.1) 4.6mmol/L (3.5-5.1) Chloride Level 103mmol/L (98-107) 106mmol/L (98-107) Carbon Dioxide Level 28mmol/L (21-32) 28mmol/L (21-32) Anion Gap 10 (6-14) 7 (6-14) Blood Urea Nitrogen 15mg/dL (8-26) 12mg/dL (8-26) Creatinine 1.1mg/dL (0.7-1.3) 1.0mg/dL (0.7-1.3) Estimated GFR (Cockcroft-Gault) 74.9 83.6 BUN/Creatinine Ratio 14 (6-20) 12 (6-20) Glucose Level 126mg/dL (70-99) 126mg/dL (70-99) Calcium Level 9.9mg/dL (8.5-10.1) 8.9mg/dL (8.5-10.1) Total Bilirubin 0.4mg/dL (0.2-1.0) 0.6mg/dL (0.2-1.0) Aspartate Amino Transf (AST/SGOT) 19U/L (15-37) 19U/L (15-37) Alanine Aminotransferase (ALT/SGPT) 30U/L (16-63) 30U/L (16-63) Alkaline Phosphatase 51U/L (46-116) 47U/L (46-116) Total Protein 7.8g/dL (6.4-8.2) 6.7g/dL (6.4-8.2) Albumin 4.5g/dL (3.4-5.0) 3.5g/dL (3.4-5.0) Albumin/Globulin Ratio 1.4 (1.0-1.7) 1.1 (1.0-1.7) Lipase 113U/L (73-393) Urine Opiates Screen Neg (NEG) Urine Methadone Screen Neg (NEG) Urine Barbiturates Neg (NEG) Urine Phencyclidine Screen Neg (NEG) Urine Amphetamine/Methamphetamine Neg (NEG) Urine Benzodiazepines Screen Neg (NEG) Urine Cocaine Screen Neg (NEG) Urine Cannabinoids Screen Neg (NEG) Ethyl Alcohol Level < 10mg/dL (0-10) Urine Ethyl Alcohol Neg (NEG) Laboratory Tests Test 11/01/16 05:11 White Blood Count 8.7x10^3/uL (4.0-11.0) Red Blood Count 4.78x10^6/uL (4.30-5.70) Hemoglobin 14.1g/dL (13.0-17.5) Hematocrit 41.8% (39.0-53.0) Mean Corpuscular Volume 87fL (79-100) Mean Corpuscular Hemoglobin 30pg (25-35) Mean Corpuscular Hemoglobin Concent 34g/dL (31-37) Red Cell Distribution Width 13.4% (11.5-14.5) Platelet Count 153x10^3/uL (140-400) Neutrophils (%) (Auto) 82% (31-73) Lymphocytes (%) (Auto) 11% (24-48) Monocytes (%) (Auto) 6% (0-9) Eosinophils (%) (Auto) 0% (0-3) Basophils (%) (Auto) 1% (0-3) Neutrophils # (Auto) 7.2x10^3uL (1.8-7.7) Lymphocytes # (Auto) 1.0x10^3/uL (1.0-4.8) Monocytes # (Auto) 0.5x10^3/uL (0.0-1.1) Eosinophils # (Auto) 0.0x10^3/uL (0.0-0.7) Basophils # (Auto) 0.0x10^3/uL (0.0-0.2) Sodium Level 141mmol/L (136-145) Potassium Level 4.6mmol/L (3.5-5.1) Chloride Level 106mmol/L (98-107) Carbon Dioxide Level 28mmol/L (21-32) Anion Gap 7 (6-14) Blood Urea Nitrogen 12mg/dL (8-26) Creatinine 1.0mg/dL (0.7-1.3) Estimated GFR (Cockcroft-Gault) 83.6 BUN/Creatinine Ratio 12 (6-20) Glucose Level 126mg/dL (70-99) Calcium Level 8.9mg/dL (8.5-10.1) Total Bilirubin 0.6mg/dL (0.2-1.0) Aspartate Amino Transf (AST/SGOT) 19U/L (15-37) Alanine Aminotransferase (ALT/SGPT) 30U/L (16-63) Alkaline Phosphatase 47U/L (46-116) Total Protein 6.7g/dL (6.4-8.2) Albumin 3.5g/dL (3.4-5.0) Albumin/Globulin Ratio 1.1 (1.0-1.7) Problem List Problems Medical Problems: (1) Cholelithiasis Status: Acute (2) Chronic sinus bradycardia Status: Acute (3) Gangrenous cholecystitis Status: Acute (4) Intractable abdominal pain Status: Acute Assessment/Plan s/p lap rena DC home home with drain FU on Monday for drain removal Problems: DEEJAY WOODS APRN Nov 01, 2016 10:03
--- NOTE | 2016-11-01 10:05 | DISCH ---
DISCHARGE INSTRUCTIONS Condition on Discharge Condition on Discharge: Stable Activity After Discharge Activity Instructions for Disc: Activity as tolerated, Avoid exertion Other activity instructions: no lifting >20 lbs Bathing Instructions: Shower-keep dressing dry Lifting Instructions after Dis: No heavy lifting, No pulling or pushing Exercise Instruction after Dis: Walk 10 min, 3 x per day, Progress as tolerated Driving Instructions after Dis: Do not drive Diet after Discharge Diet after Discharge: Regular Wound Incision Care Wound/Incision Care: May get incision wet Other wound/incision instructi: drain care as instructed, can leave incisions uncovered Follow-Up Follow up with: Dr Valles Tuesday 11/07, call to schedule [phone] DEEJAY WOODS APRN Nov 01, 2016 10:05
--- NOTE | 2016-11-01 10:09 | RAD ---
Intraoperative cholangiogram, 10/31/2016: History: Cholecystectomy 3 spot films from surgery are presented for review. Contrast has been injected into the cystic duct remnant. 22 seconds of fluoroscopy time utilized. There is good flow of contrast into the duodenum at the ampulla. The common duct is of normal caliber. No filling defect is seen to suggest a retained calculus. The incompletely opacified intrahepatic ducts are unremarkable. IMPRESSION: No significant abnormality is detected.
--- NOTE | 2016-11-02 14:43 | PATHOLOGY ---
PATHOLOGY REPORT * * * * * * * * FINAL DIAGNOSIS: Gallbladder, laparoscopic cholecystectomy: - Cholelithiasis. - Acute and chronic cholecystitis. COMMENT: There is no evidence of malignancy. (JPM:csd; d/t: 11/02/2016) REPORT ELECTRONICALLY SIGNED BY: Joel Butts M.D. DATE/TIME: 11/02/2016 14:42 * * * * * * * * GROSS PATHOLOGY: Received in formalin labeled "Lois Lantigua, gallbladder and its contents," is a 10.8 x 4.3 x 3.5 cm, intact gallbladder with blue-turk serosal surfaces. Opening the gallbladder reveals a velvety, bile-stained mucosa and an average wall thickness of 0.1 cm. Calculi are present displaying a light green and multinodular appearance, and no masses are noted grossly. Instrumentation And Controls Technician sections from the body and fundus are submitted along with the proximal margin in cassette A1. (CAA; 11/01/2016) INITIAL CPT CODE(S): A; 93949 Professional services performed [place] [address] Technical services performed by [facility] at [address] [place] [address]. SPECIMEN(S) RECEIVED: A.Gallbladder and its contents CLINICAL HISTORY: Acute cholelithiasis PATIENT: LOIS LANTIGUA /AGE: 8 1980 (Age: 36) PATIENT #: [id number] ALT CASE #: SPECIMEN COLLECTION DATE: 10/31/2016 SPECIMEN RECEIVED DATE: 11/01/2016 [facility] - [id number] [place] [address] - PHONE: [phone] * * * END OF REPORT * * *
--- NOTE | 2016-11-03 11:52 | PDOC3 ---
Discharge Summary* Date of Admission: Oct 31, 2016 Date of Discharge: Nov 01, 2016 Admitting Diagnosis Problems Medical Problems: (1) Cholelithiasis Status: Acute (2) Chronic sinus bradycardia Status: Acute (3) Gangrenous cholecystitis Status: Acute (4) Intractable abdominal pain Status: Acute Final Diagnosis Problems Medical Problems: (1) Cholelithiasis Status: Acute (2) Chronic sinus bradycardia Status: Acute (3) Gangrenous cholecystitis Status: Acute (4) Intractable abdominal pain Status: Acute CONSULTS NONE Procedures Laparoscopic cholecystectomy Brief Hospital Course Mr. Lantigua is a 36 old male who presented with cholelithiasis. He underwent laparoscopic cholecystectomy, found gangrenous cholecystitis. Postoperatively doing well, tolerating diet, ambulating, and pain managed with oral medication. Ready for discharge home Disposition/Orders: D/C to Home CONDITION AT DISCHARGE: Stable Diet: Regular Scheduled Oxycodone/Apap 5-325 (Percocet 5-325 Mg Tablet) 1 TAB PO QID (Reported) Miscellaneous Medications Cetirizine Hcl (Zyrtec) 10 MG PO (Reported) Docusate Sodium (Stool Softener) 100 MG PO (Reported) FOLLOW UP APPOINTMENT: 2 weeks Time Spent Total time spent with patient [] minutes for coordination of care, counseling, and education. DEEJAY WOODS APRN Nov 03, 2016 11:52
== END 2016-11-01 10:51 | disposition home or self-care (01) | DRG 419 ==
LOC: ER 07:52 → 5 SOUTH 12:13
PROVIDERS: ADMIT Surgery; ATTEND Surgery
PROC: BF121ZZ Fluoroscopy of Gallbladder using Low Osmolar Contrast (ICD-10-PCS; 2016-10-31)
PROC: 0FT44ZZ Resection of Gallbladder, Percutaneous Endoscopic Approach (ICD-10-PCS; principal; 2016-10-31 16:30)
DX: K80.00 Calculus of gallbladder with acute cholecystitis without obstruction (principal); R00.1 Bradycardia, unspecified
CPT/HCPCS: 36415; 74300; 76700; 80053; 81001; 83690; 85027; 88304; 93005; 96374; 96375; C1769; C1782; G0480; G0481; J0131; J0330; J0690; J1100; J1885; J2405; J2704; J2710; J3010; J3490; J7030; Q9967; S0028; 99285-25